=== PATIENT | female | born 1960 | race Two or more races ===

== ENCOUNTER 2024-04-06 17:44 | Inpatient (IN) | payer OTHER ==
[~2024-04-06] VITALS: Ht 162.6 cm; Wt 72.6 kg
[2024-04-06] MEDS ORDERED: SERT100T PO (18:25)
[2024-04-06] MEDS ORDERED: MYCO500T PO (18:25)
[2024-04-06] MEDS ORDERED: MELA3TAB41 PO (18:25)
[2024-04-06] MEDS ORDERED: PANT20TA2 PO (18:25)
[2024-04-06] MEDS ORDERED: LIDO30AD10 TP (18:25)
[2024-04-06] MEDS ORDERED: ATOR40TA PO (18:25)
[2024-04-06] MEDS ORDERED: ACET-3117 PO (18:25)
[2024-04-06] MEDS ORDERED: ALBU2.5V38 IH (18:25)
[2024-04-06] MEDS ORDERED: GUAI237L83 PO (18:25)
[2024-04-06] MEDS ORDERED: MULT-1275 PO (18:25)
[2024-04-06] MEDS ORDERED: OXYC15TA2 PO (18:25)
[2024-04-06 18:42] LABS: BASOPHILS % (AUTO) 0.4 % (0.0-2.0); EOSINOPHILS # (AUTO) 0.3 K/uL (0.0-0.7); EOSINOPHILS % (AUTO) 6.1 % (0.0-7.0); HEMATOCRIT 29.8 % (31.2-41.9); HEMOGLOBIN 9.5 g/dL (10.9-14.3); LYMPHOCYTES # (AUTO) 1.3 K/uL (0.8-4.8); LYMPHOCYTES % (AUTO) 28.5 % (20.5-51.5); MEAN CORPUSCULAR HEMOGLOBIN 25.7 uug (24.7-32.8); MEAN CORPUSCULAR HGB CONC 32 g/dL (32.3-35.6); MEAN CORPUSCULAR VOLUME 80.9 fL (75.5-95.3); MONOCYTES # (AUTO) 0.6 K/uL (0.1-1.30); MONOCYTES % (AUTO) 12.9 % (0.0-11.0); NEUTROPHILS # (AUTO) 2.4 K/uL (1.8-8.9); NEUTROPHILS % (AUTO) 52.1 % (38.5-71.5); PLATELET COUNT (AUTO) 309 K/uL (179-408); RED BLOOD CELL COUNT(AUTO) 3.69 MIL/uL (3.63-4.92); WHITE BLOOD COUNT (AUTO) 4.7 K/uL (3.8-11.8)
[2024-04-06 18:48] LABS: DIFFERENTIAL COMMENT 1
[2024-04-06] MEDS ORDERED: MORPHINE SULFATE 4 MG/1 ML DISP.SYRIN ONE (18:49)
[2024-04-06] MEDS ORDERED: ONDANSETRON 4 MG/2 ML VIAL ONE (18:49)
[2024-04-06 18:54] LABS: CALCIUM 8.6 mg/dL (8.5-10.1); CARBON DIOXIDE 29 mmol/L (21-32); CHLORIDE 103 mmol/L (98-107); CREATININE 0.7 mg/dL (0.6-1.3); GLUCOSE 96 mg/dL (74-106); POTASSIUM 3.9 mmol/L (3.5-5.1); SODIUM SERUM 139 mmol/L (136-145); UREA NITROGEN, BLOOD 9 mg/dL (7-18)
[2024-04-06] MEDS: MORPHINE SULFATE 4 MG/1 ML DISP.SYRIN IV ONE (18:57)
[2024-04-06] MEDS: ONDANSETRON 4 MG/2 ML VIAL IV ONE (18:57)
[2024-04-06 19:07] LABS: ALANINE AMINOTRANSFERASE 17 U/L (14-59); ALBUMIN 2.7 g/dL (3.4-5.0); ALKALINE PHOSPHATASE 117 U/L (50-136); ASPARTATE AMINOTRANSFERASE 11 U/L (15-37); BILIRUBIN,DIRECT 0.2 mg/dL (0.0-0.2); BILIRUBIN,TOTAL 0.4 mg/dL (0.2-1.0); NT-PRO BNP 1115 pg/mL (0-125)
[2024-04-06] MEDS ORDERED: DOCU100C36 PO (20:04)
[2024-04-06] MEDS ORDERED: FERR-68 PO (20:04)
[2024-04-06] MEDS ORDERED: FLUO118.7 TP (20:04)
[2024-04-06] MEDS ORDERED: FOLI1TAB94 PO (20:04)
[2024-04-06] MEDS ORDERED: GABA-588 PO (20:04)
[2024-04-06] MEDS ORDERED: HYDR200T4 PO (20:04)
[2024-04-06] MEDS ORDERED: FLUT16SP16 BNOSTRILS (20:04)
[2024-04-06] MEDS ORDERED: BISA-79 PO (20:04)
[2024-04-06] MEDS ORDERED: HYDR12.55 PO (20:04)
[2024-04-06] MEDS ORDERED: CLOP75TA33 PO (20:04)
[2024-04-06] MEDS: HYDROMORPHONE 1 MG/1 ML DISP.SYRIN IV ONE (20:21)
[2024-04-06] MEDS ORDERED: ALBUTEROL SULFATE 2.5 MG/3 ML NEBU IH PRN (20:30)
[2024-04-06] MEDS ORDERED: LIDOCAINE 5% PATCH TD PRN (20:30)
[2024-04-06] MEDS: ATORVASTATIN 40 MG TABLET PO SCH (22:18)
[2024-04-06] MEDS: DOCUSATE SODIUM 100 MG CAPSULE PO SCH (22:18)
[2024-04-06] MEDS: BISACODYL 5 MG TABLET.DR PO SCH (22:19)
[2024-04-06] MEDS: MELATONIN 3 MG TABLET PO SCH (22:22)
[2024-04-07] MEDS: OXYCODONE HCL 5 MG TABLET PO PRN (01:12)
[2024-04-07 04:00] VITALS: BP 107/66; TEMP 97.9; O2SAT 99
[2024-04-07] MEDS: FLUTICASONE PROP NASAL SPRAY 16 GM BOTTLE NS SCH (08:38)
[2024-04-07] MEDS: FOLIC ACID 1 MG TABLET PO SCH (08:38)
[2024-04-07] MEDS: MULTIVITAMINS,THERAPEUTIC TABLET PO SCH (08:38)
[2024-04-07] MEDS: HYDROXYCHLOROQUINE SULFATE 200 MG TABLET PO SCH (08:38)
[2024-04-07] MEDS: HYDROCHLOROTHIAZIDE 12.5 MG CAPSULE PO SCH (08:38)
[2024-04-07] MEDS: MYCOPHENOLATE MOFETIL 250 MG CAPSULE PO SCH (08:43)
[2024-04-07] MEDS ORDERED: PANTOPRAZOLE SODIUM 40 MG TABLET.DR PO SCH (09:00)
[2024-04-07] MEDS ORDERED: SERTRALINE HCL 100 MG TABLET PO SCH (09:00)
[2024-04-07] MEDS ORDERED: GABA300C PO (10:33)
[2024-04-07] MEDS ORDERED: CARI350T PO (10:39)
[2024-04-07] MEDS ORDERED: SULF500T8 PO (10:39)
[2024-04-07] MEDS ORDERED: ONDA4TAB5 PO (10:39)
[2024-04-07 11:43] VITALS: BP 107/64; TEMP 98.9; O2SAT 93
[2024-04-07] MEDS: CLOPIDOGREL 75 MG TABLET PO SCH (12:08)
[2024-04-07] MEDS: PANTOPRAZOLE SODIUM 40 MG TABLET.DR PO SCH (12:08)
[2024-04-07] MEDS: GABAPENTIN 300 MG CAPSULE PO SCH (12:09)
[2024-04-07] MEDS: SERTRALINE HCL 100 MG TABLET PO SCH (12:09)
[2024-04-07 12:32] LABS: BASOPHILS % (AUTO) 0.4 % (0.0-2.0); EOSINOPHILS # (AUTO) 0.5 K/uL (0.0-0.7); EOSINOPHILS % (AUTO) 8.5 % (0.0-7.0); HEMATOCRIT 29.9 % (31.2-41.9); HEMOGLOBIN 9.5 g/dL (10.9-14.3); LYMPHOCYTES # (AUTO) 1.3 K/uL (0.8-4.8); MEAN CORPUSCULAR HEMOGLOBIN 25.8 uug (24.7-32.8); MEAN CORPUSCULAR HGB CONC 32 g/dL (32.3-35.6); MEAN CORPUSCULAR VOLUME 81.3 fL (75.5-95.3); MONOCYTES # (AUTO) 0.6 K/uL (0.1-1.30); MONOCYTES % (AUTO) 11.8 % (0.0-11.0); NEUTROPHILS % (AUTO) 55.3 % (38.5-71.5); PLATELET COUNT (AUTO) 307 K/uL (179-408); RED BLOOD CELL COUNT(AUTO) 3.69 MIL/uL (3.63-4.92); RED CELL DISTRIBUTION WIDTH 16.4 % (12.3-17.7); WHITE BLOOD COUNT (AUTO) 5.5 K/uL (3.8-11.8)
[2024-04-07 12:34] LABS: DIFFERENTIAL COMMENT 1
[2024-04-07 13:05] LABS: MAGNESIUM 2.3 mg/dL (1.8-2.4)
[2024-04-07] MEDS: DEXAMETHASONE SOD PHOSPHATE 4 MG INJ IV ONE (15:30)
[2024-04-07 15:42] LABS: THYROID STIMULATING HORMONE 1.391 mIU/mL (0.358-3.740)
[2024-04-07 15:50] VITALS: BP 106/59; TEMP 98.9; O2SAT 98
[2024-04-07] MEDS: SULFASALAZINE 500 MG TABLET PO SCH (16:46)
[2024-04-07] MEDS: BISACODYL 5 MG TABLET.DR PO SCH (20:19)
[2024-04-07] MEDS: LIDOCAINE 5% PATCH TD PRN (20:22)
[2024-04-07 22:54] VITALS: BP 120/62; TEMP 98.8; O2SAT 94
[2024-04-08 12:00] VITALS: BP 114/68; TEMP 97.8; O2SAT 97
[2024-04-08] MEDS: SOD FERRIC GLUC COMPLX/SUCROSE 125 MG in IV NORMAL SALINE 100 ML IV SCH (14:58)
[2024-04-08 15:31] LABS: THYROID STIMULATING HORMONE 1.957 mIU/mL (0.358-3.740)
[2024-04-08 16:00] VITALS: BP 122/68; TEMP 97.6; O2SAT 97
[2024-04-08 18:10] LABS: *OCCULT BLOOD STOOL NEGATIVE (NEGATIVE)
[2024-04-09 00:23] VITALS: BP 121/83; TEMP 98.1; O2SAT 96
[2024-04-09 06:50] VITALS: BP 121/68; TEMP 98.5; O2SAT 95
[2024-04-09 07:19] LABS: BASOPHILS % (AUTO) 0.2 % (0.0-2.0); EOSINOPHILS # (AUTO) 0.2 K/uL (0.0-0.7); EOSINOPHILS % (AUTO) 4.7 % (0.0-7.0); HEMATOCRIT 30.4 % (31.2-41.9); HEMOGLOBIN 10.1 g/dL (10.9-14.3); LYMPHOCYTES # (AUTO) 1.8 K/uL (0.8-4.8); LYMPHOCYTES % (AUTO) 40.8 % (20.5-51.5); MEAN CORPUSCULAR HEMOGLOBIN 26.5 uug (24.7-32.8); MEAN CORPUSCULAR HGB CONC 33 g/dL (32.3-35.6); MONOCYTES # (AUTO) 0.4 K/uL (0.1-1.30); MONOCYTES % (AUTO) 9.8 % (0.0-11.0); NEUTROPHILS % (AUTO) 44.5 % (38.5-71.5); PLATELET COUNT (AUTO) 332 K/uL (179-408); RED BLOOD CELL COUNT(AUTO) 3.81 MIL/uL (3.63-4.92); RED CELL DISTRIBUTION WIDTH 15.9 % (12.3-17.7); WHITE BLOOD COUNT (AUTO) 4.5 K/uL (3.8-11.8)
[2024-04-09 07:30] LABS: CALCIUM 8.7 mg/dL (8.5-10.1); CREATININE 0.7 mg/dL (0.6-1.3); MAGNESIUM 2.2 mg/dL (1.8-2.4); PHOSPHOROUS 3.6 mg/dL (2.5-4.9); POTASSIUM 3.7 mmol/L (3.5-5.1)
[2024-04-09 07:35] LABS: DIFFERENTIAL COMMENT 1
[2024-04-09 16:09] VITALS: BP 125/79; TEMP 98.3; O2SAT 96
[2024-04-09] MEDS: DEXAMETHASONE SOD PHOSPHATE 4 MG INJ IV ONE (18:00)
[2024-04-09] MEDS: GUAIFENESIN/DEXTROMETHORPHAN 5 ML UDC PO PRN (20:06)
[2024-04-09] MEDS: CARISOPRODOL 350 MG TABLET PO PRN (22:39)
[2024-04-09 23:00] VITALS: BP 123/67; TEMP 98.5; O2SAT 96
[2024-04-09 23:45] VITALS: BP 111/55; TEMP 99.3; O2SAT 96
== END 2024-04-10 02:51 | disposition short-term general hospital (02) | DRG 347 ==
LOC: ER 17:52 → MEDSURG3 21:08
PROVIDERS: ATTEND Internal Medicine
DX: M48.56XA Collapsed vertebra, not elsewhere classified, lumbar region, initial encounter for fracture (principal); I50.31 Acute diastolic (congestive) heart failure; E44.0 Moderate protein-calorie malnutrition; D68.59 Other primary thrombophilia; E88.09 Other disorders of plasma-protein metabolism, not elsewhere classified; M50.11 Cervical disc disorder with radiculopathy, high cervical region; M48.02 Spinal stenosis, cervical region; I11.0 Hypertensive heart disease with heart failure; J01.00 Acute maxillary sinusitis, unspecified; M06.9 Rheumatoid arthritis, unspecified; G89.4 Chronic pain syndrome; F11.20 Opioid dependence, uncomplicated; E66.9 Obesity, unspecified; Z68.27 Body mass index [BMI] 27.0-27.9, adult; J98.11 Atelectasis; Z79.02 Long term (current) use of antithrombotics/antiplatelets; G62.9 Polyneuropathy, unspecified; E78.5 Hyperlipidemia, unspecified; D50.9 Iron deficiency anemia, unspecified; I35.8 Other nonrheumatic aortic valve disorders; F32.9 Major depressive disorder, single episode, unspecified; I25.10 Atherosclerotic heart disease of native coronary artery without angina pectoris; R53.1 Weakness; Z79.899 Other long term (current) drug therapy; Z86.718 Personal history of other venous thrombosis and embolism; Z86.16 Personal history of COVID-19; Z79.624 Long term (current) use of inhibitors of nucleotide synthesis; Z88.6 Allergy status to analgesic agent; Z99.3 Dependence on wheelchair; Z91.81 History of falling
CPT/HCPCS: 36415; 71045; 72125; 72148; 83550; 83735; 83921; 84100; 84443; 84484; 85025; 85651; 85730; 86140; 93307; A4606; A4663; G0378; J1100; J1171; J2270; J2405; J2916; J3535; J7517